=== PATIENT | female | born 1975 | race African-American/Black ===

== ENCOUNTER 2021-08-19 14:30 | Emergency (ER) | payer SELFPAY | END 2021-08-19 17:00 | disposition home or self-care (01) | LOC: CSHERS 14:30 | DX: U07.1 COVID-19 (principal); Z79.899 Other long term (current) drug therapy | CPT/HCPCS: 71045; 93005 ==

== ENCOUNTER 2021-09-20 14:38 | Emergency (ER) | payer SELFPAY | END 2021-09-20 15:12 | disposition home or self-care (01) | LOC: CSHERS 14:38 | DX: R51.9 Headache, unspecified (principal) | CPT/HCPCS: 99283 ==

== ENCOUNTER 2021-11-18 16:47 | Emergency (ER) | payer OTHER, SELFPAY | END 2021-11-18 19:39 | disposition home or self-care (01) | LOC: CSHERS 16:47 | DX: S93.402A Sprain of unspecified ligament of left ankle, initial encounter (principal); X50.1XXA Overexertion from prolonged static or awkward postures, initial encounter; W18.30XA Fall on same level, unspecified, initial encounter ==

== ENCOUNTER 2023-06-01 22:23 | Emergency (ER) | payer BC, SELFPAY ==
[2023-06-01 23:39] LABS: SARS-CoV-2 NAA Rapid Test Not Detected (NotDetected)
== END 2023-06-02 01:10 | disposition home or self-care (01) ==
LOC: CSHERS 22:23
DX: B34.9 Viral infection, unspecified (principal); Z20.822 Contact with and (suspected) exposure to COVID-19
CPT/HCPCS: 71046; 93005